=== PATIENT | male | born 1990 | race Hispanic/Latino ===

== ENCOUNTER 2021-01-02 11:16 | Emergency (ER) | payer SELFPAY ==
[~2021-01-02] VITALS: Ht 165.1 cm; Wt 84.5 kg
[~2021-01-02 11:16] MED LIST: NAPROXEN500 MG PO; ZOFRAN4 MG PO
[2021-01-02 13:49] LABS: URINE BILIRUBIN - DIPSTICK NEGATIVE (NEGATIVE); URINE BLOOD DIPSTICK NEGATIVE (NEGATIVE); URINE COLOR YELLOW; URINE GLUCOSE - DIPSTICK NEGATIVE (NEGATIVE); URINE KETONE NEGATIVE (NEGATIVE); URINE LEUK ESTERASE NEGATIVE (NEGATIVE); URINE PH 6.5 (4.5-8.0); URINE PROTEIN - DIPSTICK NEGATIVE (NEG-TRACE); URINE UROBILINOGEN - DIPSTICK 0.2 E.U./dL (0.2)
[2021-01-02 13:51] LABS: URINE NITRITE - DIPSTICK NEGATIVE (Negative)
[2021-01-02 13:53] LABS: HEMATOCRIT 49.2 % (39.0-50.0); IMMATURE GRANULOCYTES 0.6 % (0.0-5.0); MEAN CELL VOLUME 90.9 fL CALC (80.0-100.0); MEAN CORPUSCULAR HGB 29.6 pG CALC (26.0-32.0); MEAN CORPUSCULAR HGB CONC 32.5 g/dL CAL (32.0-36.0); NEUT# 5.95 thou/uL (1.82-7.42); RED BLOOD COUNT 5.41 mill/uL (4.70-6.10); RED CELL DISTRI WIDTH 13.8 % (11.5-15.5)
[2021-01-02 14:00] LABS: ALBUMIN 5.1 g/dL (3.2-5.0); ALKALINE PHOSPHATASE 73 u/l (38-126); AMYLASE 54 u/l (30-110); ANION GAP 14 (6-22 (CALC)); BILIRUBIN, TOTAL 0.7 mg/dL (0.0-1.4); BUN 16 mg/dL (9-20); BUN/CREATININE RATIO 23 (12-20 (CALC)); CARBON DIOXIDE 27 mmol/l (22-30); CHLORIDE 103 mmol/l (95-108); CREATININE 0.7 mg/dL (0.7-1.3); GFR > 60 ML/MIN (>=60 (CALC)); GFR FOR AFR.AMER. > 60 ML/MIN (>=60 (CALC)); LIPASE 82 u/l (23-300); POTASSIUM 4.2 mmol/l (3.5-5.1); SGOT/AST 31 u/l (17-59); SODIUM 141 mmol/l (137-146); TOTAL PROTEIN 8.7 g/dL (6.3-8.2)
[2021-01-02] MEDS ORDERED: PROTONIX40 M2 PO (14:26)
[2021-01-02 14:44] VITALS: BP 126/80
== END 2021-01-02 14:44 | disposition home or self-care (01) | DRG 392 ==
LOC: ED 11:16
DX: R10.11 Right upper quadrant pain (principal)

== ENCOUNTER 2021-07-03 08:59 | Emergency (ER) | payer OTHER ==
[2021-07-03] VITALS (13 sets, daily range): BP systolic 107–144; BP diastolic 67–90
[~2021-07-03] VITALS: Ht 165.1 cm; Wt 65.0 kg
[~2021-07-03 08:59] MED LIST changes: +PROTONIX40 M2 PO
[2021-07-03 09:59] LABS: HEMATOCRIT 46.7 % (39.0-50.0); HEMOGLOBIN 15.3 g/dl (14.0-18.0); MEAN CELL VOLUME 90.2 fL CALC (80.0-100.0); MEAN CORPUSCULAR HGB 29.5 pG CALC (26.0-32.0); MEAN CORPUSCULAR HGB CONC 32.8 g/dL CAL (32.0-36.0); NEUT# 3.51 thou/uL (1.82-7.42); RED BLOOD COUNT 5.18 mill/uL (4.70-6.10); RED CELL DISTRI WIDTH 13.7 % (11.5-15.5)
[2021-07-03 10:06] LABS: ALBUMIN 4.4 g/dL (3.2-5.0); ALKALINE PHOSPHATASE 74 u/l (38-126); ANION GAP 12 (6-22 (CALC)); BILIRUBIN, TOTAL 0.6 mg/dL (0.0-1.4); BUN 14 mg/dL (9-20); BUN/CREATININE RATIO 23 (12-20 (CALC)); CARBON DIOXIDE 23 mmol/l (22-30); CHLORIDE 106 mmol/l (95-108); CREATININE 0.6 mg/dL (0.7-1.3); GFR > 60 ML/MIN (>=60 (CALC)); GFR FOR AFR.AMER. > 60 ML/MIN (>=60 (CALC)); LIPASE 61 u/l (23-300); POTASSIUM 3.8 mmol/l (3.5-5.1); SGOT/AST 37 u/l (17-59); SODIUM 137 mmol/l (137-146); TOTAL PROTEIN 7.8 g/dL (6.3-8.2)
[2021-07-03 11:28] LABS: URINE BILIRUBIN - DIPSTICK NEGATIVE (NEGATIVE); URINE BLOOD DIPSTICK NEGATIVE (NEGATIVE); URINE COLOR YELLOW; URINE GLUCOSE - DIPSTICK NEGATIVE (NEGATIVE); URINE KETONE NEGATIVE (NEGATIVE); URINE LEUK ESTERASE NEGATIVE (NEGATIVE); URINE PH 6.5 (4.5-8.0); URINE PROTEIN - DIPSTICK NEGATIVE (NEG-TRACE); URINE UROBILINOGEN - DIPSTICK 0.2 E.U./dL (0.2)
[2021-07-03 11:32] LABS: URINE NITRITE - DIPSTICK NEGATIVE (Negative)
[2021-07-03] MEDS ORDERED: OMEPRAZOLE20 MG PO (11:37)
== END 2021-07-03 11:59 | disposition home or self-care (01) | DRG 392 ==
LOC: ED 08:59
PROVIDERS: Family Medicine
DX: R10.11 Right upper quadrant pain (principal)
CPT/HCPCS: Q9967

== ENCOUNTER 2021-11-07 08:02 | Emergency (ER) | payer OTHER ==
[~2021-11-07] VITALS: Ht 162.6 cm; Wt 80.0 kg
[~2021-11-07 08:02] MED LIST changes: +OMEPRAZOLE20 MG PO
[2021-11-07 08:19] VITALS: BP 118/79
[2021-11-07 08:30] VITALS: BP 114/75
[2021-11-07 09:00] VITALS: BP 117/71
[2021-11-07 09:31] VITALS: BP 116/77
[2021-11-07] MEDS ORDERED: CEPHALEXIN500 M1 PO (09:36)
[2021-11-07] MEDS ORDERED: ALBENDAZOLE200 MG PO (09:36)
== END 2021-11-07 09:54 | disposition home or self-care (01) | DRG 603 ==
LOC: ED 08:02
DX: L03.113 Cellulitis of right upper limb (principal)